=== PATIENT | male | born 1965 | race Caucasian/White ===

== ENCOUNTER 2020-03-20 07:02 | Day surgery (SDC) | payer OTHER, SELFPAY ==
[2020-03-14 13:50] VITALS: BMI 34.2
[2020-03-19 11:09] VITALS: BMI 34.2
--- NOTE | 2020-03-19 11:10 | HO.ANESPROP2 ---
Documented by User: Arabella Nelson 03/19/20 11:10 HPI - Anesthesia Eval Consult details Narrative: 54yo M for Colonoscopy [facility] Past Medical History Medical History (Updated 03/14/20 @ 13:51 by Thelma Cassidy) Elevated cholesterol Surgical History Surgical History (Updated 03/14/20 @ 13:51 by Thelma Cassidy) Hx of tonsillectomy Social History Social History (Updated 03/14/20 @ 13:52 by Thelma Cassidy) Smoking Status: Former smoker Smoking Quit Date: 2007 Use of substances other than those prescribed or required for medical reasons: No Advance Directives: No Advance Directives Information Provided: Yes Advance Directives on File: No Meds Allergies Allergy/AdvReac Type Severity Reaction Status Date / Time No Known Allergies Allergy Verified 03/14/20 13:52 Home Medications Medication Instructions Recorded Confirmed Type gemfibrozil 03/14/20 History rntviiffnrgg-gflavjzm-wrzyua 1 tab PO DAILY 03/14/20 03/14/20 History [Multivitamin 50 Plus] rosuvastatin 03/14/20 History Exam Exam Date and Time: March 19, 2020 1110 Height,Weight and Vital Signs: Height 5 ft 9.5 in Weight 106.594 kg Assessment and Plan Assessment Anesthesia Assessment: Chart Reviewed Documented by User: Celina Rizzo 03/20/20 07:20 [facility] Past Medical History Medical History (Updated 03/14/20 @ 13:51 by Thelma Cassidy) Elevated cholesterol Surgical History Surgical History (Updated 03/14/20 @ 13:51 by Thelma Cassidy) Hx of tonsillectomy Social History Social History (Updated 03/14/20 @ 13:52 by Thelma Cassidy) Smoking Status: Former smoker Smoking Quit Date: 2007 Use of substances other than those prescribed or required for medical reasons: No Advance Directives: No Advance Directives Information Provided: Yes Advance Directives on File: No Meds Allergies Allergy/AdvReac Type Severity Reaction Status Date / Time No Known Allergies Allergy Verified 03/14/20 13:52 Home Medications Medication Instructions Recorded Confirmed Type gemfibrozil 03/14/20 History evlcofmeecmx-dmksaaru-uhxdbo 1 tab PO DAILY 03/14/20 03/14/20 History [Multivitamin 50 Plus] rosuvastatin 03/14/20 History Exam Airway Mallampati Class: II TM Dist: >3cm Neck ROM: Full Heart: RRR Lungs: CTacBL Assessment and Plan Assessment Anesthesia Assessment: Anesthesia Plan Discussed and Chart Reviewed Final Anesthetic Review NPO: Yes ASA Class: II Final Preanesthetic Review: Meds/Allgs Chart Reviewed and Consent Obtained/Reviewed Patient Risk: Intermediate Procedure Risk: Intermediate Anesthetic Plan Anesthetic Plan: MAC: Disposition: Standard PACU
[2020-03-20 07:17] VITALS: BP 142/96; PULSE 81; RESP 18; TEMP 36.1; O2SAT 98
[2020-03-20] MEDS: Lactated Ringers 1,000 ML 100 ML IVCONT (07:23)
[2020-03-20 08:25] VITALS: BP 128/89; PULSE 83; RESP 16; TEMP 36.4; O2SAT 97
--- NOTE | 2020-03-20 08:29 | PM.OP ---
Brief Operative Note Date of Service: 03/20/20 Pre-op diagnosis: Heme + stool Post-op diagnosis: other (Diverticulosis) Procedure: Colonoscopy to the cecum Surgeon: Jose Ro Anesthesia: MAC Estimated blood loss (mL): 0 Pathology: none sent Condition: stable Disposition: PACU
[2020-03-20 08:40] VITALS: BP 130/86; PULSE 75; RESP 18; O2SAT 98
--- NOTE | 2020-03-20 09:04 | HO.POSTANES ---
Post Anesthesia Evaluation Post Anesthesia Evaluation Vital Signs: Vital Signs Temp Pulse Resp BP Pulse Ox 03/20/20 08:40 97.6 F 75 18 130/86 98 03/20/20 08:25 97.6 F 83 16 128/89 97 03/20/20 07:17 97 F 81 18 142/96 H 98 Anesthesia: Monitored Mental Status: Awake Pain Control: Satisfactory Nausea/Vomiting: None Hydration: Adequate Anesthesia-Related Issues: No Anes. Related Issues
--- NOTE | 2020-03-23 15:22 | OP_ITS ---
SURGEON: Jose Ro MD INDICATIONS: The patient presents for evaluation of heme-positive stool. Full consent has been obtained from him for this, including risks of bleeding and perforation. PREOPERATIVE DIAGNOSIS: Heme-positive stool. POSTOPERATIVE DIAGNOSIS: PROCEDURE PERFORMED: Colonoscopy to the cecum. ESTIMATED BLOOD LOSS: COMPLICATIONS: ANESTHESIA: Monitored anesthesia care. ASSISTANTS: SPECIMENS: POSTOPERATIVE DIAGNOSES: Heme-positive stool, diverticulosis and small internal hemorrhoids. DESCRIPTION OF PROCEDURE: The patient was placed in the left lateral decubitus position. The digital rectal exam revealed no abnormalities. The Olympus video pediatric colonoscope was entered into the rectum and advanced easily to the cecum. Once in the cecum, I did identify normal-appearing cecal pouch with appendiceal orifice and a normal-appearing ileocecal valve. The entire cecum was well visualized and appeared normal. There was transillumination of light deep in the right lower quadrant. The scope was then slowly withdrawn assessing all mucosal surfaces carefully. Preparation was excellent. I did not visualize any sign of polyps, colitis, nor angiodysplasias. There was a mild amount of sigmoid diverticulosis. In the rectum, scope was retroflexed visualizing small internal hemorrhoids, but no other pathology. The rectal mucosa appeared normal. Scope was straightened out and withdrawn from the patient. He tolerated procedure well and was returned to recovery area in stable condition. IMPRESSION: 1. Occasional sigmoid diverticulosis. 2. Small internal hemorrhoids. PLAN: Given the patient's negative exam and negative family history, I would recommend a followup colonoscopy in 10 years for further screening. He will otherwise see me as needed. Jose Ro MD RMW/MODL / [id number]
== END 2020-03-20 09:15 | disposition home or self-care (01) ==
PROVIDERS: PCP Internal Medicine; Visit Provider Internal Medicine
PROC: 0DJD8ZZ Inspection of Lower Intestinal Tract, Via Natural or Artificial Opening Endoscopic (ICD-10-PCS; CPT 45378; principal; 2020-03-20 08:40)
DX: R19.5 Other fecal abnormalities (principal); K57.30 Diverticulosis of large intestine without perforation or abscess without bleeding; K64.8 Other hemorrhoids; E78.5 Hyperlipidemia, unspecified; Z79.899 Other long term (current) drug therapy
CPT/HCPCS: 45378

== ENCOUNTER 2022-09-12 08:32 | Outpatient (REF) | payer OTHER, SELFPAY | END 2022-09-12 08:33 | disposition home or self-care (01) | LOC: HO.HMGCLDS 08:32 | PROVIDERS: PCP Internal Medicine; Visit Provider Internal Medicine | DX: Z00.00 Encounter for general adult medical examination without abnormal findings (principal); Z12.5 Encounter for screening for malignant neoplasm of prostate; E78.5 Hyperlipidemia, unspecified | CPT/HCPCS: 36415; 80053; 80061; 84153; 85025 ==

== ENCOUNTER 2023-11-18 06:32 | Outpatient (REF) | payer OTHER, SELFPAY ==
[2023-11-18 10:05] LABS: MANUAL DIFF FLAG NO
[2023-11-18 10:38] LABS: Alanine Aminotransferase 35 U/L (0-40); Albumin Level 4.3 g/dL (3.5-5.0); Alkaline Phosphatase 81 U/L (39-117); Anion Gap 11 (12-20); Aspartate Amino Transferase 40 U/L (5-37); Bilirubin Total 0.5 mg/dL (0.0-1.0); Blood Urea Nitrogen 8 mg/dL (9-16); Calcium 9.7 mg/dL (8.4-10.2); Carbon Dioxide 25 mmol/L (22-29); Chloride 108 mmol/L (96-108); Cholesterol 240 mg/dL (<200); Estimated Glomerular Filt Rate > 60; Glucose Fasting 107 mg/dL (60-99); HDL Cholesterol 74 mg/dL (>40); LDL Cholesterol Calculated 150 mg/dL (<100); Potassium 4.2 mmol/L (3.3-5.1); Sodium 140 mmol/L (135-145); Total Protein 7.5 g/dL (6.5-8.0); Triglycerides 84 mg/dL (<150)
[2023-11-18 10:42] LABS: Basophils Absolute Auto 0.1 X10*3/uL (0.0-0.2); Eosinophils Absolute Auto 0.3 X10*3/uL (0.0-0.4); Eosinophils Percent Auto 6.5 % (0-4); Hematocrit 45.6 % (42.0-52.0); Hemoglobin 15.3 g/dl (14.0-18.0); Imm Gran Abs Auto 0.02 X10*3/uL (0.00-0.03); Imm Gran Pct Auto 0.4 % (0.0-0.4); Lymphocytes Absolute Auto 1.7 X10*3/uL (1.2-4.9); Lymphocytes Percent Auto 33.8 % (20-40); Mean Corpuscular HGB Conc 33.6 g/dl (31.0-36.0); Mean Corpuscular Hemoglobin 31.6 pg (27.0-33.0); Mean Corpuscular Volume 94.2 fL (80.0-98.0); Mean Platelet Volume 9.4 fL (9.4-12.4); Monocytes Absolute Auto 0.6 X10*3/uL (0.1-1.2); Neutrophils Absolute Auto 2.4 x10*3/uL (2.0-8.3); Neutrophils Percent Auto 47.3 % (45-73); Platelet Count 291 X10*3/uL (160-400); Red Blood Count 4.84 X10*6/uL (4.60-5.80); Red Cell Distribution Width 13.3 % (11.0-16.0); White Blood Count 5.1 X10*3/uL (4.8-10.8)
[2023-11-18 11:01] LABS: Prostate Specific Antigen Scr 1.13 ng/mL (<0.05-4.0)
== END 2023-11-18 06:33 | disposition home or self-care (01) ==
LOC: HO.HMGCLDS 06:32
PROVIDERS: PCP Internal Medicine; Visit Provider Internal Medicine
DX: Z00.00 Encounter for general adult medical examination without abnormal findings (principal); Z12.5 Encounter for screening for malignant neoplasm of prostate; I10 Essential (primary) hypertension; E78.5 Hyperlipidemia, unspecified
CPT/HCPCS: 36415; 80053; 80061; 84153; 85025

== ENCOUNTER 2024-11-13 15:08 | Outpatient (AMB) | payer OTHER, SELFPAY ==
--- NOTE | 2024-11-13 15:21 | MHC.PC.OV ---
Vital Signs 11/13/24 15:28 Height 5 ft 9.29 in Weight 226 lb BMI 33.1 BP 172/90 H Respiration 14 Pulse 108 H Pulse Source Pulse Oximeter Temp 97.8 F Temp Source Temporal Artery Scan Pulse Oximetry (%) 98 Oxygen Delivery Method Room Air Intake Visit Reasons: Chasity Gallagher/Dr. Braden Salicylic Acid Blender Required: No Accompanied by: Self / Same As Patient Allergies No Known Allergies Allergy (Verified 11/13/24 16:49) Medication List - Last Reconciled 11/13/24 by Hedy Glover PA-C cyclobenzaprine 10 mg PO Q8H dicyclomine 10 mg PO BID lisinopril 10 mg PO DAILY meloxicam 15 mg PO DAILY yjbapibbyugl-umkgsjgg-hlcsnu (Multivitamin 50 Plus tablet) 1 tab PO DAILY rosuvastatin 40 mg PO DAILY Tobacco use date assessed: 11/13/24 Dental Screening Dental Screen Date: 11/13/24 Did you have a dental visit in the last 12 months?: Yes Did you have a dental problem in the last 6 months where you did not have access to dental care?: No Was dental information given to patient?: Patient has dentist HPI Chasity Gallagher/Dr. Braden HPI Details The patient is a 59-year-old male presenting for new patient appointment with right hip pain following a fall. Approximately two and a half months ago, the patient experienced a fall caused by his dog, resulting in an initial knee injury followed by hip pain. The hip pain has progressively worsened, characterized by severe discomfort in the groin area and radiating to the back, exacerbated by sitting and movement. Initial x-rays at an urgent care facility indicated a hip dislocation, which was manually reduced, but the pain persisted, suggesting a possible fracture. The patient has a history of elevated cholesterol, which is hereditary, and he is currently managing it with medication. He also reports elevated blood pressure readings, with a recent measurement of 163/105 mmHg, which may be influenced by a newly detected heart murmur. Social History - Employment: Works as a warehouse order filler, involving physical activity and driving. [facility] Medical History (Updated 11/13/24 @ 16:53 by Hedy Glover PA-C) Class 1 obesity with body mass index (BMI) of 33.0 to 33.9 in adult Hyperlipidemia Hypertension Heart murmur Right knee pain Fall Right hip pain Elevated cholesterol Surgical History Hx of tonsillectomy Family History Father Cancer Mother No problems noted. Social History Housing: Apartment Alcohol intake: current Alcohol intake frequency: a few times a week Patient Tobacco Use Status: Former Tobacco user service: No Current occupational status: employed Cognitive needs: No Hearing needs: No Vision needs: Yes (rx glasses) Questionnaire PHQ-9 Over the last 2 weeks, how often have you been bothered by any of the following problems? 1. Little interest or pleasure in doing things: not at all 2. Feeling down, depressed, or hopeless: not at all 3. Trouble falling or staying asleep, or sleeping too much: not at all 4. Feeling tired or having little energy: not at all 5. Poor appetite or overeating: not at all 6. Feeling bad about yourself - or that you are a failure or have let yourself or your family down: not at all 7. Trouble concentrating on things, such as reading the newspaper or watching television: not at all 8. Moving or speaking so slowly that other people could have noticed. Or the opposite - being so fidgety or restless that you have been moving around a lot more than usual: not at all 9. Thoughts that you would be better off or of hurting yourself in some way: not at all Total score: 0 Depression Screening Interpretation: Negative Depression Screening Done: Yes 39869 - PHQ-9 Billing: Yes Source: Developed by Drs. Jose Loyd, Rosa Lynn, Alex Quinn and colleagues, with an educational ansley from [email or web address]. Thrive Questionnaire Date Thrive assessed: 11/13/24 I am a: Patient What is your living situation today?: I have a steady place to live Within the past 12 months, did the food you bought not last and you didn't have the money to get more?: Never true Within the past 12 months, did you worry whether your food would run out before you got money to buy more?: Never true Do you have trouble paying for medicines?: No Do you have trouble getting transportation to medical appointments?: No Do you have trouble paying your heating and electricity bill?: No Do you have trouble taking care of your child, family member or friend?: No Do you have trouble with day-to-day activities such as bathing, preparing meals, shopping, managing finances, etc.?: No Are you currently unemployed and looking for a job?: No Are you interested in more education?: No Please select the resources that you would like help with: None THRIVE Score: 0 AUDIT C Alcohol Use Questionnaire (AUDIT-C) 1. How often do you have a drink containing alcohol?: 2-3 times a week 2. How many drinks containing alcohol do you have on a typical day when you are drinking?: 1 or 2 3. How often do you have six or more drinks on one occasion?: Never Total Score: 3 Score Reviewed/Action Taken: No GAYATRI-7 AMB Questionnaire GAYATRI-7 Date GAYATRI - 7 assessed: 11/13/24 Feeling nervous, anxious, or on edge: 1 = Several days Not being able to stop or control worryin = More than half the days Worrying too much about different things: 2 = More than half the days Trouble relaxin = Several days Being so restless that it is hard to sit still: 1 = Several days Becoming easily annoyed or irritable: 2 = More than half the days Feeling afraid as if something awful might happen: 0 = Not at all Total GAYATRI-7 score (0-4 normal; 5-9 mild; 10-14 moderate; 15-21 severe): 9 Source: Developed by Drs. Jose Loyd, Rosa Lynn, Alex Quinn and colleagues, with an educational ansley from [email or web address]. GAYATRI-7 Assessment Billing GAYATRI-7 Assessment Tool: GAYATRI-7 Assessment 49218 Review of Systems Const Details: - Musculoskeletal: Reports severe hip pain radiating to the groin and back, exacerbated by sitting and movement. - Cardiovascular: Reports elevated blood pressure readings. - Neurological: Reports numbness in the leg during prolonged driving. All systems reviewed & are unremarkable except as noted in HPI and below Physical exam (Primary Care) Vital Signs: Last Vital Signs Temp 97.8 F 11/13/24 15:28 Pulse 108 H 11/13/24 15:28 Resp 14 11/13/24 15:28 BP 172/90 H 11/13/24 15:28 Pulse Ox 98 11/13/24 15:28 Oxygen Delivery Method Room Air 11/13/24 15:28 Care Plan Goal for BP management: <140/90 patient will be started on lisinopril 10 mg return in 1 month with blood pressure diary BMI result Body Mass Index 33.1 BMI Assessment/Plan discussion: High BMI High, discussed plan: lifestyle, weight reduction, dietary, physical activity, alcohol moderation and other Tobacco/Smoking Status: Tobacco use Status Tobacco use date assessed 11/13/24 11/13/24 15:36 Patient Tobacco Use Status Former Tobacco user 11/13/24 15:36 PHQ-9: PHQ-9 Score PHQ-9: Total score 0 11/13/24 15:36 Depression Screening Interpretation: Negative Thrive Assessment: Date of Thrive Assessment Date Thrive assessed 11/13/24 11/13/24 15:36 Const Other: Appearance: Alert. Oriented X3. No acute distress. Head: Normal external exam. Normocephalic. Atraumatic. Eyes: Pupils are equal, round, and reactive to light. Extraocular movements intact. Conjunctiva and sclera normal. Eyelids normal. Ears: External auditory canal normal. Tympanic membranes normal. Throat: Pharynx normal. Uvula midline. Moist mucous membranes. Neck: Normal inspection. Neck supple. Full range of motion. Cardiovascular: Normal heart rate and rhythm. Heart sound normal. murmur noted. Pulses normal throughout. Respiratory: No respiratory distress. Painless inspiration. Breath sounds normal. No wheezes/rales/rhonchi noted. Chest nontender. No accessory muscle usage noted or decreased air movement noted. Abdomen: Soft and nontender. Bowel sounds normal in all 4 quadrants. No distention noted. No organomegaly noted. No visible injury noted. Back: No costovertebral angle tenderness. Full range of motion noted. Skin: Skin warm and dry. Normal skin color. Normal skin turgor. No rashes/lesions/lacerations noted. Extremities: Limping observed. Pain noted in the right hip and right groin area. Mild tenderness to right knee. No obvious deformity. No joint effusions. No signs of infection. No lower extremity edema. Otherwise all other extremities exhibit normal range of motion nontender. Neuro: Oriented X 3. No motor deficit. No sensory deficit. Reflexes normal. Results Reviewed Results Reviewed: - Imaging: Initial x-ray showed hip dislocation, manually reduced at urgent care. Coding Level of Care Code New Pt Level 4 (17747) Complex EM visit Add On G2211 Diagnoses Right hip pain M25.551 Right knee pain M25.561 Fall W19.XXXA Hypertension I10 Heart murmur R01.1 Hyperlipidemia E78.5 Class 1 obesity with body mass index (BMI) of 33.0 to 33.9 in adult E66.811; Z68.33 Additional Codes PHQ-9 - 84340 - PHQ-9 Billing: Yes ([id number]) GAYATRI-7 Assessment Billing - GAYATRI-7 Assessment Tool: GAYATRI-7 Assessment 62971 ([id number]) Assessment & Plan Assessment & Plan (1) Right hip pain: Code(s): M25.551 - Pain in right hip Category: Medical Plan: The patient will undergo a repeat x-ray to assess the current status of the hip and rule out any fractures. An orthopedic referral has been made for further evaluation and management. (2) Right knee pain: Code(s): M25.561 - Pain in right knee Category: Medical Plan: Will repeat right knee x-ray due to persistent pain. And orthopedic referral has been made for further evaluation management. (3) Fall: Code(s): W19.XXXA - Unspecified fall, initial encounter Category: Medical Plan: Right hip pain and right knee pain from fall. Prescribed meloxicam, Flexeril. Referral to orthopedic and physical therapy. Will continue to monitor. (4) Hypertension: Code(s): I10 - Essential (primary) hypertension Category: Medical Plan: The patient will start on lisinopril 10 mg daily to manage blood pressure, with a follow-up in one month to monitor response and side effects. (5) Heart murmur: Code(s): R01.1 - Cardiac murmur, unspecified Category: Medical Plan: An ultrasound of the heart has been ordered to evaluate the murmur and its potential impact on blood pressure. (6) Hyperlipidemia: Code(s): E78.5 - Hyperlipidemia, unspecified Category: Medical Plan: The patient is advised to continue current medication for cholesterol management. (7) Class 1 obesity with body mass index (BMI) of 33.0 to 33.9 in adult: Code(s): E66.811 - Obesity, class 1; Z68.33 - Body mass index [BMI] 33.0-33.9, adult Category: Medical Plan: Patient has improved diet and exercise regimen. Condition is chronic and stable continue to monitor. Plan Plan Patient was informed and verbally consented to the use of an ambient scribe for clinic note documentation during this visit. 1. Hip Dislocation The patient will undergo a repeat x-ray to assess the current status of the hip and rule out any fractures. An orthopedic referral has been made for further evaluation and management. 2. Possible Hip Fracture A CAT scan may be considered if the x-ray results are inconclusive to rule out a fracture. 3. Hypertension The patient will start on lisinopril 10 mg daily to manage blood pressure, with a follow-up in one month to monitor response and side effects. 4. Heart Murmur An ultrasound of the heart has been ordered to evaluate the murmur and its potential impact on blood pressure. 5. Hyperlipidemia The patient is advised to continue current medication for cholesterol management. I discussed with the patient the need for a repeat x-ray to evaluate the hip and the possibility of a CAT scan if the x-ray is inconclusive. We talked about starting lisinopril to manage his blood pressure and the importance of monitoring for side effects. I explained the heart murmur findings and the plan to perform an ultrasound to assess its impact on his health. Orders: Orders C Reactive Protein Today Z00.00 - Encounter for general adult medical examination without abnormal findings Lipid Panel Today Z00.00 - Encounter for general adult medical examination without abnormal findings Vitamin B12 and Folate Today Z00.00 - Encounter for general adult medical examination without abnormal findings TSH reflex Free T4 Today Z00.00 - Encounter for general adult medical examination without abnormal findings XR hip RT w PEL1V Today M25.551 - Pain in right hip, W19.XXXA - Unspecified fall, initial encounter Complete Blood Count Auto Diff Today Z00.00 - Encounter for general adult medical examination without abnormal findings Comprehensive Caroline. Panel Fast Today Z00.00 - Encounter for general adult medical examination without abnormal findings Hemoglobin A1c Today Z00.00 - Encounter for general adult medical examination without abnormal findings Liver Panel Today Z00.00 - Encounter for general adult medical examination without abnormal findings Magnesium Today Z00.00 - Encounter for general adult medical examination without abnormal findings Vitamin D 25-OH Total Today Z00.00 - Encounter for general adult medical examination without abnormal findings PSA,Total (Free>4and<10) Today Z00.00 - Encounter for general adult medical examination without abnormal findings PT Evaluation and Treatment Today M25.551 - Pain in right hip, M25.561 - Pain in right knee, W19.XXXA - Unspecified fall, initial encounter CA echo transthoracic complete Today R01.1 - Cardiac murmur, unspecified Referrals Orthopedics Referral M25.551 - Pain in right hip, M25.561 - Pain in right knee, W19.XXXA - Unspecified fall, initial encounter Medications: New meloxicam 15 mg PO DAILY 60 tabs 0RF cyclobenzaprine 10 mg PO Q8H 60 tabs 0RF lisinopril 10 mg PO DAILY 30 tabs 0RF Patient Instructions: - Take lisinopril 10 mg daily as prescribed. - Schedule and attend the repeat x-ray appointment. - Follow up with the poison information specialist as soon as possible. - Monitor blood pressure daily and record the readings. - Continue current cholesterol medication.
[2024-11-13 15:28] VITALS: BP 172/90; PULSE 108; RESP 14; TEMP 36.6; O2SAT 98; BMI 33.1
--- OUTSIDE RECORDS SUMMARY | 2024-11-13 18:19 | XMS_ITS | Patient Health Record ---
Author Organization [facility] Address [address] [place] [address] Care Team Providers Care Official Greeter Name Role Phone Sampson (RETIRED) Tejinder SANCHEZ Primary Care Provider Unavailable Jose Ro Unavailable [phone] Reason For Referral No Information Medications Medication SIG (Take, Route, Frequency, Duration) Notes Start Date End Date Status Gemfibrozil Active Rosuvastatin Calcium Active Mens 50+ Multi Vitamin/Min Active Immunizations Vaccine Route Administration Date Status Comme nts Influenza Unknown 02/14/2020 Refused Social History Tobacco Use: Social History Observation Description Date Details (start date - stop date) Former Smoker NA - NA Tobacco Use/Smoking Question Answer Notes Patient is a former smoker When did you stop smoking? 12 years ago How long has it been since you last smoked? > 10 years Alcohol Screen Question Answer Notes Did you have a drink contain ing alcohol in the past year? Yes How often did you have a dri nk containing alcohol in the past year? 2 to 3 times a week (3 points) How often did you have 6 or more drinks on one occasion in the past year? Monthly (2 points) Points 5 Interpretation Positive Section Notes: Nonsmoker; occ. alcohol Problems Problem Type SNOMED Code ICD Code Onset Dates Problem Status W/U Status Risk Notes Problem Abnormal feces ([id number]) Heme + stool (R19.5) Active confirmed Plan Of Treatment Future Test Test Name Order Date COLONOSCOPY 02/14/2020 Insurance Providers Payer Name Payer Address Payer Phone Subscriber Number Group Number Insured Name Patient Relationship to Insured Coverage Start Date Coverage End Date HEALTH PLANS [facility] [address] [facility] [address] [phone] [id number] [facility] RANDY MEJIA Self - patient is the insured Medical (General) History Medical History History ICD Code Hyperlipidemia Denies [place],DM,CVA,Lung disease,renal dise ase Surgical History Surgery Date(Month/Year) Tonsillectomy
== END 2024-11-13 16:04 | disposition home or self-care (01) ==
LOC: HO.HMCSH 15:08
PROVIDERS: PCP Internal Medicine; Visit Provider Physician Assistant Medical
DX: M25.551 Pain in right hip (principal); M25.561 Pain in right knee; W19.XXXA Unspecified fall, initial encounter; I10 Essential (primary) hypertension; R01.1 Cardiac murmur, unspecified; E78.5 Hyperlipidemia, unspecified; E66.811 Obesity, class 1; Z68.33 Body mass index [BMI] 33.0-33.9, adult

== ENCOUNTER → 2024-11-13 15:08 | Outpatient (BNVA) | payer OTHER, SELFPAY | PROVIDERS: PCP Internal Medicine; Visit Provider Physician Assistant Medical | DX: M25.551 Pain in right hip (principal); M25.561 Pain in right knee; I10 Essential (primary) hypertension; R00.1 Bradycardia, unspecified; E78.5 Hyperlipidemia, unspecified; E66.811 Obesity, class 1; Z68.33 Body mass index [BMI] 33.0-33.9, adult; Z91.81 History of falling | CPT/HCPCS: 96127 ==

== ENCOUNTER 2024-11-14 13:09 | Outpatient (REF) | payer OTHER, SELFPAY ==
--- NOTE | ~2024-11-14 | XR_ITS ---
EXAMINATION: XR HIP, RIGHT CLINICAL INFORMATION: M25.551 - Pain in right hip COMPARISON: Prior x-ray dated June 30, 2014 is not available on PACS. TECHNIQUE: AP view pelvis. AP and oblique views of the right hip. FINDINGS: Joint space narrowing, sclerotic articular surface and subchondral cyst formation involving the right coxofemoral joint. No acute cortical disruption or malalignment. No lytic or blastic lesions syndesmophyte formation at L4-5. Mild degenerative changes in the symphysis pubis. No acute fracture in the bony pelvis. No acute fracture or dislocation left hip. XR/XR hip RT w PEL1V IMPRESSION: Moderate to severe osteoarthritis/osteoarthrosis, right hip. Electronically signed by: Aldo Bernard MD 11/14/2024 01:45 PM EDT
--- OUTSIDE RECORDS SUMMARY | 2024-11-14 15:29 | XMS_ITS | Patient Health Record ---
Author Organization [facility] Address [address] [place] [address] Care Team Providers Care Construction Engineering Manager Name Role Phone Sampson (RETIRED) Tejinder SANCHEZ Primary Care Provider Unavailable Jose Ro Unavailable [phone] Reason For Referral No Information Medications Medication [...] W/U Status Risk Notes Problem Abnormal feces ([id number]) Heme + stool (R19.5) Active confirmed Plan Of Treatment Future Test Test Name Order Date COLONOSCOPY 02/14/2020 Insurance Providers Payer Name Payer Address Payer Phone Subscriber Number Group Number Insured Name Patient Relationship to Insured Coverage Start Date Coverage End Date HEALTH PLANS [address] [facility] [address] [facility] [id number] [facility] RANDY MEJIA Self - patient is the insured Medical (General) History Medical History History ICD Code Hyperlipidemia Denies GA,DM,CVA,Lung disease,renal dise ase Surgical History Surgery Date(Month/Year) Tonsillectomy
== END 2024-11-14 13:10 | disposition home or self-care (01) ==
LOC: HO.HMGCX 13:09
PROVIDERS: Visit Provider Physician Assistant Medical
DX: M25.551 Pain in right hip (principal); W19.XXXA Unspecified fall, initial encounter
CPT/HCPCS: 73502

== ENCOUNTER → 2024-11-14 13:16 | Outpatient (BNV) | payer OTHER, SELFPAY | PROVIDERS: Visit Provider Radiology Diagnostic Radiology | DX: M16.11 Unilateral primary osteoarthritis, right hip (principal) | CPT/HCPCS: 73502 ==

== ENCOUNTER 2024-12-28 13:06 | Outpatient (AMB) | payer OTHER, SELFPAY ==
--- NOTE | 2024-12-28 13:13 | A.OFFPC_ITS ---
Vital Signs 12/28/24 13:14 12/28/24 16:45 Height 5 ft 9.29 in Weight 223 lb BMI 32.7 BP 150/87 H 137/87 Blood Pressure Location Lt brachial Position Sitting Pulse 117 H 109 H Pulse Source Pulse Oximeter Temp 99.0 F Temp Source Temporal Artery Scan Pulse Oximetry (%) 96 Oxygen Delivery Method Room Air Intake Visit Reasons: 1 month follow up Physician Office Clin Asst Required: No Accompanied by: Self / Same As Patient Allergies No Known Allergies Allergy (Verified 12/28/24 16:45) Medication List - Last Reconciled 12/28/24 by Hedy Glover PA-C dicyclomine 10 mg PO BID lisinopril 20 mg PO DAILY 90 days pbswnbziisvw-[id number] (Multivitamin 50 Plus tablet) 1 tab PO DAILY rosuvastatin 40 mg PO DAILY tizanidine 4 mg PO Q6-8H PRN tramadol 50 mg PO Q4H PRN Tobacco use date assessed: 12/28/24 Dental Screening Dental Screen Date: 12/28/24 Did you have a dental visit in the last 12 months?: Yes Did you have a dental problem in the last 6 months where you did not have access to dental care?: No Was dental information given to patient?: Patient has dentist HPI 1 month follow up HPI Details The patient is a 59-year-old male presenting with right hip pain and hypertension management. The patient reports a history of right hip pain, which has progressively worsened over time. The pain was initially managed with a cortisone injection, which did not provide relief, leading to the decision for surgical intervention scheduled for March 05. The patient has been experiencing significant discomfort, describing the sensation as sitting on a baseball, and reports numbness and sharp pain extending from the hip to the knee. The patient has a history of hypertension, previously managed with lisinopril 10 mg daily, which was insufficient in controlling his blood pressure, recorded at 130-140/85 mmHg. The dosage has been increased to 20 mg daily, with a 90-day supply and refills provided. The patient reports anxiety related to his pain, which has affected his appetite and caused an elevated heart rate. 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 - Functional Status: The patient experie nces severe pain when dismounting from machinery, impacting his ability to perform work duties. [facility] Medical History (Updated 12/28/24 @ 16:48 by Hedy Glover PA-C) Anxiety Osteoarthritis of right hip Hip dislocation, right Class 1 obesity with body mass index (BMI) of 33.0 to 33.9 in adult Hyperlipidemia Hypertension Heart murmur Right knee pain Fall Right hip pain Elevated cholesterol Surgical History Hx of tonsillectomy Family History Father Cancer Mother No problems noted. Social History Housing: Apartment Alcohol intake: current Alcohol intake frequency: a few times a week Patient Tobacco Use Status: Former Tobacco user service: No Current occupational status: employed Cognitive needs: No Hearing needs: No Vision needs: Yes (rx glasses) Questionnaire PHQ-9 Over the last 2 weeks, how often have you been bothered by any of the following problems? 1. Little interest or pleasure in doing things: not at all 2. Feeling down, depressed, or hopeless: not at all 3. Trouble falling or staying asleep, or sleeping too much: not at all 4. Feeling tired or having little energy: not at all 5. Poor appetite or overeating: not at all 6. Feeling bad about yourself - or that you are a failure or have let yourself or your family down: not at all 7. Trouble concentrating on things, such as reading the newspaper or watching television: not at all 8. Moving or speaking so slowly that other people could have noticed. Or the opposite - being so fidgety or restless that you have been moving around a lot more than usual: not at all 9. Thoughts that you would be better off or of hurting yourself in some way: not at all Total score: 0 Depression Screening Interpretation: Negative Depression Screening Done: Yes 33935 - PHQ-9 Billing: Yes Source: Developed by Drs. Jose Loyd, Rosa Lynn, Alex Quinn and colleagues, with an educational ansley from [employer]. Thrive Questionnaire Date Thrive assessed: 12/28/24 I am a: Patient What is your living situation today?: I have a steady place to live Within the past 12 months, did the food you bought not last and you didn't have the money to get more?: Never true Within the past 12 months, did you worry whether your food would run out before you got money to buy more?: Never true Do you have trouble paying for medicines?: No Do you have trouble getting transportation to medical appointments?: No Do you have trouble paying your heating and electricity bill?: No Do you have trouble taking care of your child, family member or friend?: No Do you have trouble with day-to-day activities such as bathing, preparing meals, shopping, managing finances, etc.?: No Are you currently unemployed and looking for a job?: No Are you interested in more education?: No Please select the resources that you would like help with: None THRIVE Score: 0 AUDIT C Alcohol Use Questionnaire (AUDIT-C) 1. How often do you have a drink containing alcohol?: 2-3 times a week 2. How many drinks containing alcohol do you have on a typical day when you are drinking?: 1 or 2 3. How often do you have six or more drinks on one occasion?: Never Total Score: 3 Score Reviewed/Action Taken: No GAYATRI-7 AMB Questionnaire GAYATRI-7 Date GAYATRI - 7 assessed: 12/28/24 Feeling nervous, anxious, or on edge: 1 = Several days Not being able to stop or control worryin = More than half the days Worrying too much about different things: 2 = More than half the days Trouble relaxin = Several days Being so restless that it is hard to sit still: 1 = Several days Becoming easily annoyed or irritable: 2 = More than half the days Feeling afraid as if something awful might happen: 0 = Not at all Total GAYATRI-7 score (0-4 normal; 5-9 mild; 10-14 moderate; 15-21 severe): 9 Source: Developed by Drs. Jose Loyd, Rosa Lynn, Alex Quinn and colleagues, with an educational ansley from [employer]. GAYATRI-7 Assessment Billing GAYATRI-7 Assessment Tool: GAYATRI-7 Assessment 48539 Review of Systems Const Details: - Musculoskeletal: Reports severe right hip pain, numbness, and sharp pain extending to the knee. - Cardiovascular: Reports elevated heart rate due to anxiety and pain. - General: Reports decreased appetite due to pain. All systems reviewed & are unremarkable except as noted in HPI and below Physical exam (Primary Care) Vital Signs: Last Vital Signs Temp 99.0 F 12/28/24 13:14 Pulse 117 H 12/28/24 13:14 BP 150/87 H 12/28/24 13:14 Pulse Ox 96 12/28/24 13:14 Oxygen Delivery Method Room Air 12/28/24 13:14 Care Plan Goal for BP management: <140/90 patient's blood pressure was mildly elevated therefore will increase lisinopril from 10 mg to 20 mg daily and patient will return with blood pressure diary BMI result Body Mass Index 32.7 BMI Assessment/Plan discussion: High BMI High, discussed plan: lifestyle, weight reduction, dietary, physical activity, alcohol moderation and other Tobacco/Smoking Status: Tobacco use Status Tobacco use date assessed 12/28/24 12/28/24 13:16 Patient Tobacco Use Status Former Tobacco user 12/28/24 13:16 PHQ-9: PHQ-9 Score PHQ-9: Total score 0 12/28/24 13:16 Depression Screening Interpretation: Negative Thrive Assessment: Date of Thrive Assessment Date Thrive assessed 12/28/24 12/28/24 13:16 Const Other: Appearance: Alert. Oriented X3. No acute distress. Head: Normal external exam. Normocephalic. Atraumatic. Eyes: Pupils are equal, round, and reactive to light. Extraocular movements intact. Conjunctiva and sclera normal. Eyelids normal. Throat: Pharynx normal. Uvula midline. Moist mucous membranes. Neck: Normal inspection. Neck supple. Full range of motion. Cardiovascular: Heart rate elevated at 109 bpm. Normal heart rhythm. Heart sound normal. No murmurs noted. Pulses normal throughout. Respiratory: No respiratory distress. Painless inspiration. Breath sounds normal. No wheezes/rales/rhonchi noted. Chest nontender. No accessory muscle usage noted or decreased air movement noted. Back: Full range of motion noted. Skin: Skin warm and dry. Normal skin color. Normal skin turgor. No rashes/lesions/lacerations noted. Extremities: No lower extremity edema. Extremities exhibit normal range of motion. Although patient reports pain to right hip. Neuro: Oriented X 3. No motor deficit. No sensory deficit. Reflexes normal. Office Procedures Flu Questionnaire Does the patient have a severe egg allergy?: No Does the patient have severe life threatening allergies?: No Does the patient have a fever or illness today?: No Has the patient ever had Guillain-[place] Syndrome?: No Has the patient ever had any past reaction to a flu shot?: No Immunizations Fluarix [id number] (PF) 45 mcg (15 mcg x 3)/0.5 mL IM syringe Performing Provider: Hedy Glover PA-C [facility] Documented (not given) by: Marilee Carpenter CMA on 12/28/24 13:24 Reason Not Given: Patient Refused Results Reviewed Results Reviewed: - Imaging: X-ray of the right hip showed moderate to severe osteoarthritis. Coding Level of Care Code Est Pt Level 4 (74043) Complex EM visit Add On G2211 Diagnoses Osteoarthritis of right hip M16.11 Hypertension I10 Anxiety F41.9 Additional Codes GAYATRI-7 Assessment Billing - GAYATRI-7 Assessment Tool: GAYATRI-7 Assessment 89182 ([id number]) PHQ-9 - 20873 - PHQ-9 Billing: Yes ([id number]) Assessment & Plan Assessment & Plan (1) Osteoarthritis of right hip: Code(s): M16.11 - Unilateral primary osteoarthritis, right hip Category: Medical Plan: The patient is scheduled for hip surgery on March 05 due to moderate to severe osteoarthritis of the right hip, as confirmed by X-ray. A cortisone injection was previously administered but did not provide relief. The patient is advised to manage pain with tramadol as needed, particularly after work. (2) Hypertension: Code(s): I10 - Essential (primary) hypertension Category: Medical Plan: The patient's hypertension is being managed with an increased dose of lisinopril, now at 20 mg daily, due to previous inadequate control with 10 mg. A 90-day supply with refills has been provided, and the patient is advised to monitor blood pressure regularly. (3) Anxiety: Code(s): F41.9 - Anxiety disorder, unspecified Category: Medical Plan: The patient's anxiety, likely exacerbated by pain, is being addressed by advising the use of tramadol as needed for pain management. The patient is encouraged to manage anxiety through pain control and to seek further consultation if symptoms persist. Plan Plan Patient was informed and verbally consented to the use of an ambient scribe for clinic note documentation during this visit. 1. Osteoarthritis Of The Right Hip The patient is scheduled for hip surgery on March 05 due to moderate to severe osteoarthritis of the right hip, as confirmed by X-ray. A cortisone injection was previously administered but did not provide relief. The patient is advised to manage pain with tramadol as needed, particularly after work. 2. Hypertension The patient's hypertension is being managed with an increased dose of lisinopril, now at 20 mg daily, due to previous inadequate control with 10 mg. A 90-day supply with refills has been provided, and the patient is advised to monitor blood pressure regularly. 3. Anxiety Related To Pain The patient's anxiety, likely exacerbated by pain, is being addressed by advising the use of tramadol as needed for pain management. The patient is encouraged to manage anxiety through pain control and to seek further consultation if symptoms persist. During the visit, we discussed the patient's upcoming hip surgery scheduled for March 05, due to moderate to severe osteoarthritis confirmed by X-ray. We reviewed the management of his hypertension, increasing lisinopril to 20 mg daily, and provided a 90-day supply with refills. The patient was advised to use tramadol as needed for pain, particularly after work, and to monitor his blood pressure regularly. Orders: Orders Influenza [id number] Immunization Today Z23 - Encounter for immunization UA CC w/rflx Micro + Cult Today Z00.00 - Encounter for general adult medical examination without abnormal findings Medications: Changed From lisinopril 10 mg PO DAILY 30 tabs 0RF To lisinopril 20 mg PO DAILY 90 tabs 3RF 90 days Patient Instructions: - Take lisinopril 20 mg daily as prescribed. - Use tramadol as needed for pain, especially after work. - Monitor blood pressure regularly and report any significant changes. - Follow up with the orthopedic surgeon as scheduled for hip surgery on March 05. - Schedule a follow-up appointment after surgery for further evaluation and management.
[2024-12-28 13:14] VITALS: BP 150/87; PULSE 117; TEMP 37.2; O2SAT 96; BMI 32.7
[2024-12-28 16:45] VITALS: BP 137/87; PULSE 109
== END 2024-12-28 13:42 | disposition home or self-care (01) ==
LOC: HO.HMCSH 13:06
PROVIDERS: PCP Physician Assistant Medical; Visit Provider Physician Assistant Medical
DX: M16.11 Unilateral primary osteoarthritis, right hip (principal); I10 Essential (primary) hypertension; F41.9 Anxiety disorder, unspecified; Z23 Encounter for immunization

== ENCOUNTER → 2024-12-28 13:06 | Outpatient (BNVA) | payer OTHER, SELFPAY | PROVIDERS: PCP Physician Assistant Medical; Visit Provider Physician Assistant Medical | DX: M16.11 Unilateral primary osteoarthritis, right hip (principal); I10 Essential (primary) hypertension; F41.9 Anxiety disorder, unspecified; Z28.21 Immunization not carried out because of patient refusal | CPT/HCPCS: 90471; 96127 ==